=== PATIENT | male | born 1960 | race African-American/Black ===

== ENCOUNTER → 2022-09-13 | Outpatient (CLI) | payer OTHER ==
--- NOTE | 2022-09-13 13:14 | XR ---
EXAMINATION TYPE: XR chest 2V DATE OF EXAM: 09/13/2022 COMPARISON: NONE TECHNIQUE: PA and lateral views submitted. HISTORY: TB FINDINGS: The lungs are clear and there is no pneumothorax, pleural effusion, or focal pneumonia. Heart size normal and no overt failure. Osseous structures demonstrate hypertrophic and degenerative changes of the spine. Atherosclerotic change aorta. Biapical pleural thickening. IMPRESSION: 1. No acute process.
== END | disposition home or self-care (01) ==
LOC: RADXRMAIN 11:58
PROVIDERS: ATTEND Internal Medicine
DX: D75.89 Other specified diseases of blood and blood-forming organs (principal); D72.19 Other eosinophilia
CPT/HCPCS: 71046

== ENCOUNTER → 2022-09-13 | Outpatient (CLI) | payer OTHER ==
[2022-09-13 21:39] LABS: Basophils # (A) 0.04 X 10*3/uL (0.00-0.10); Eosinophils # (A) 0.16 X 10*3/uL (0.04-0.35); Eosinophils % (A) 3.9 %; HGB 11.7 g/dL (13.0-17.0); Immature Grans, Automated 0.2 %; Lymphocytes # (A) 1.37 X 10*3/uL (0.90-5.00); MCH 33.3 pg (27.0-32.0); MCHC 32.5 g/dL (32.0-37.0); MCV 102.6 fL (80.0-97.0); Mean Platelet Volume 10.8 fL (9.5-12.2); Monocytes # (A) 0.25 X 10*3/uL (0.20-1.00); NRBC Per 100 WBC 0 /100 WBCS (0.0-0.0); Neutrophils # (A) 2.32 X 10*3/uL (1.80-7.70); Neutrophils % (A) 55.9 %; Platelet Count 326 X 10*3/uL (140-440); RBC 3.51 X 10*6/uL (4.40-5.60); RDW 12.2 % (11.5-14.5); WBC 4.15 X 10*3/uL (4.50-10.00)
== END | disposition home or self-care (01) ==
LOC: LABWHC1 11:29
PROVIDERS: ATTEND Internal Medicine
DX: J44.9 Chronic obstructive pulmonary disease, unspecified (principal); D72.819 Decreased white blood cell count, unspecified; D75.89 Other specified diseases of blood and blood-forming organs
CPT/HCPCS: 36415; 82607; 82746; 85025

== ENCOUNTER → 2022-09-15 | Outpatient (CLI) | payer OTHER ==
[2022-09-15 15:55] LABS: Reticulocyte % 1.28 % (0.10-1.80)
[2022-09-15 16:32] LABS: % Iron Saturation 39.19 (15.00-50.00)
== END | disposition home or self-care (01) ==
LOC: LABWHC1 07:31
PROVIDERS: ATTEND Internal Medicine
DX: D64.9 Anemia, unspecified (principal); E61.1 Iron deficiency; R58 Hemorrhage, not elsewhere classified
CPT/HCPCS: 36415; 82728; 83540; 83550; 85045

== ENCOUNTER → 2023-05-23 | Outpatient (CLI) | payer OTHER ==
[2023-05-23 15:29] LABS: Basophils # (A) 0.02 X 10*3/uL (0.00-0.10); Basophils % (A) 0.3 %; Eosinophils # (A) 0.08 X 10*3/uL (0.04-0.35); Eosinophils % (A) 1.1 %; HCT 39.1 % (39.6-50.0); HGB 12.6 g/dL (13.0-17.0); Lymphocytes # (A) 1.41 X 10*3/uL (0.90-5.00); Lymphocytes % (A) 19.9 %; MCH 32.8 pg (27.0-32.0); MCHC 32.2 g/dL (32.0-37.0); MCV 101.8 FL (80.0-97.0); Mean Platelet Volume 10.5 FL (9.5-12.2); Monocytes # (A) 0.37 X 10*3/uL (0.20-1.00); Monocytes % (A) 5.2 %; NRBC Per 100 WBC 0 X 10*3/uL (0.00-0.01); Neutrophils # (A) 5.18 X 10*3/uL (1.80-7.70); Neutrophils % (A) 73.2 %; Platelet Count 284 X 10*3/uL (140-440); RBC 3.84 X 10*6/uL (4.40-5.60); RDW 12.4 % (11.5-14.5); WBC 7.08 X 10*3/uL (4.50-10.00)
[2023-05-23 16:12] LABS: % Iron Saturation 24.23 (15.00-50.00); ALT 17 U/L (10-49); AST 13 U/L (14-35); C Reactive Protein <0.30 mg/dL (0.00-0.80); Chol/HDL Ratio 3.66 Ratio; Creatine Kinase 164 U/L (35-257); Iron 79 UG/DL (65-175); LDL Cholesterol,Calculated 128.2 mg/dL (0.0-131.0); Total Iron Binding Capacity 326 UG/DL (228-460); VLDL Calculation 11.44 mg/dL (5.00-40.00)
[2023-05-23 16:38] LABS: Erythrocyte Sedimentation Rate 3 mm/Hr (0-20)
== END | disposition home or self-care (01) ==
LOC: LABWHC1 08:37
PROVIDERS: ATTEND Internal Medicine
DX: E55.9 Vitamin D deficiency, unspecified (principal); E78.5 Hyperlipidemia, unspecified; M81.0 Age-related osteoporosis without current pathological fracture; D64.9 Anemia, unspecified
CPT/HCPCS: 36415; 80061; 82306; 82550; 82728; 83540; 83550; 84450; 84460; 85025; 85652; 86140

== ENCOUNTER → 2024-10-02 | Outpatient (CLI) | payer MEDICARE ==
--- NOTE | 2024-10-02 07:48 | XR ---
EXAMINATION TYPE: XR chest 2V DATE OF EXAM: 10/02/2024 7:43 AM COMPARISON: 09/13/2022 CLINICAL INDICATION: Male, 64 years old with history of J44.9 COPD, TECHNIQUE: XR chest 2V view(s) obtained. FINDINGS: The heart size is normal. The pulmonary vasculature is normal. Hyperinflation flattening the diaphragms is present compatible with COPD. No suspicious infiltrates.. IMPRESSION: 1. COPD. 2. No acute pulmonary process. [facility], , 10/02/2024 7:45 AM
[2024-10-02 10:23] LABS: Basophils # (A) 0.04 X 10*3/uL (0.00-0.10); Basophils % (A) 0.9 %; Eosinophils # (A) 0.27 X 10*3/uL (0.04-0.35); Eosinophils % (A) 6.4 %; HGB 12.4 g/dL (13.0-17.0); Lymphocytes # (A) 1.66 X 10*3/uL (0.90-5.00); Lymphocytes % (A) 39.2 %; MCH 32.3 pg (27.0-32.0); MCHC 31.8 g/dL (32.0-37.0); MCV 101.6 FL (80.0-97.0); Mean Platelet Volume 10.5 FL (9.5-12.2); Monocytes # (A) 0.37 X 10*3/uL (0.20-1.00); Monocytes % (A) 8.7 %; NRBC Per 100 WBC 0 X 10*3/uL (0.00-0.01); Neutrophils # (A) 1.88 X 10*3/uL (1.80-7.70); Neutrophils % (A) 44.6 %; Platelet Count 291 X 10*3/uL (140-440); RBC 3.84 X 10*6/uL (4.40-5.60); RDW 11.9 % (11.5-14.5); WBC 4.23 X 10*3/uL (4.50-10.00)
[2024-10-02 10:46] LABS: Hepatitis A Antibody IgM Nonreactive (Nonreactive)
[2024-10-02 10:47] LABS: Hepatitis B Core IgM Nonreactive (Nonreactive); Hepatitis B Surface Antigen Nonreactive (Nonreactive); Hepatitis C IgG Antibody Nonreactive (Nonreactive)
[2024-10-02 10:56] LABS: % Iron Saturation 30.34 (15.00-50.00); ALT 15 U/L (10-49); AST 17 U/L (14-35); Albumin 4.3 g/dL (3.8-4.9); Albumin/Globulin Ratio 1.79 Ratio (1.60-3.17); Alkaline Phosphatase 58 U/L (41-126); BUN/Creat Ratio 20.27 Ratio (12.00-20.00); Blood Urea Nitrogen 22.3 mg/dL (9.0-27.0); C Reactive Protein <0.30 mg/dL (0.00-0.80); Carbon Dioxide 25.3 mmol/L (21.6-31.8); Chloride 107 mmol/L (96-109); Chol/HDL Ratio 3.52 Ratio; Creatine Kinase 347 U/L (35-257); GGT 15 U/L (0-73); Globulin 2.4 g/dL (1.6-3.3); Glucose 101 mg/dL (70-110); Iron 88 UG/DL (65-175); LDL Cholesterol,Calculated 108.8 mg/dL (0.0-131.0); Magnesium 2.1 mg/dL (1.5-2.4); Potassium 4.2 mmol/L (3.5-5.5); Prostate Specific Antigen 0.72 ng/mL (0.000-4.500); Sodium 142 mmol/L (135-145); Total Bilirubin 0.5 mg/dL (0.3-1.2); Total Iron Binding Capacity 290 UG/DL (228-460); Total Protein 6.7 g/dL (6.2-8.2); Uric Acid 4.3 mg/dL (3.7-8.7); VLDL Calculation 9.28 mg/dL (5.00-40.00)
[2024-10-02 11:45] LABS: Erythrocyte Sedimentation Rate 6 mm/Hr (0-20)
[2024-10-02 13:05] LABS: Appearance,Urine Clear (Clear); Bilirubin,Urine Negative (Negative); Blood,Urine Negative (Negative); Color,Urine Yellow (Yellow); Ketones,Urine Trace (Negative); Nitrite,Urine Negative (Negative); Specific Gravity,Urine 1.021 (1.001-1.030)
[2024-10-02 13:16] LABS: Bacteria,Urine 3+ (None Seen)
== END | disposition home or self-care (01) ==
LOC: LABWHC1 07:17
PROVIDERS: ATTEND Internal Medicine
DX: Z00.00 Encounter for general adult medical examination without abnormal findings (principal); J44.9 Chronic obstructive pulmonary disease, unspecified; D64.9 Anemia, unspecified; I10 Essential (primary) hypertension; M10.9 Gout, unspecified; E55.9 Vitamin D deficiency, unspecified; N39.0 Urinary tract infection, site not specified; E03.9 Hypothyroidism, unspecified; E87.8 Other disorders of electrolyte and fluid balance, not elsewhere classified; E78.5 Hyperlipidemia, unspecified
CPT/HCPCS: 36415; 71046; 80053; 80061; 80074; 81001; 82306; 82550; 82728; 82977; 83540; 83550; 83735; 84100; 84153; 84402; 84403; 84443; 84550; 85025; 85652; 86140; 87086